=== PATIENT | male | born 1960 | race Caucasian/White ===

== ENCOUNTER 2017-06-26 05:18 | Emergency (ER) | payer SELFPAY ==
[2017-06-26] MEDS ORDERED: ASPIRIN 81 MG TABLET, CHEWABLE PO ONE (05:36)
[2017-06-26 06:16] LABS: ABSOLUTE BASOPHILS # (AUTO) 0.1 10^3/uL (0.0-0.2); ABSOLUTE LYMPHOCYTES (AUTO) 1.5 10^3/uL (0.5-4.7); ABSOLUTE MONOCYTES (AUTO) 0.3 10^3/uL (0.1-1.4); BASOPHILS % (AUTO) 1.7 % (0-2); EOSINOPHILS % (AUTO) 0.3 % (0-6); HEMATOCRIT 45.9 % (37.9-51.0); HEMOGLOBIN 15.9 g/dL (13.5-17.0); LYMPHOCYTES % (AUTO) 37.8 % (13-45); MEAN CORPUSCULAR HGB CONC 34.7 g/dL (32.0-36.0); MEAN CORPUSCULAR VOLUME 98 fl (80-97); MONOCYTES % (AUTO) 8.6 % (3-13); PLATELET COUNT 246 10^3/uL (150-450); RED BLOOD COUNT 4.68 10^6/uL (4.35-5.55); SEGMENTED NEUTROPHILS % (AUTO) 51.6 % (42-78); TOTAL CELLS COUNTED % (AUTO) 100 %; WHITE BLOOD COUNT 3.8 10^3/uL (4.0-10.5)
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
[2017-06-26 06:30] LABS: ALANINE AMINOTRANSFERASE 38 U/L (21-72); ALBUMIN 4.7 g/dL (3.5-5.0); ALKALINE PHOSPHATASE 66 U/L (38-126); ANION GAP 18 (5-19); ASPARTATE AMINO TRANSFERASE 49 U/L (17-59); BILIRUBIN,DIRECT 0.3 mg/dL (0.0-0.4); BILIRUBIN,TOTAL 0.7 mg/dL (0.2-1.3); BLOOD UREA NITROGEN 5 mg/dL (7-20); CALCIUM 9.8 mg/dL (8.4-10.2); CARBON DIOXIDE 22 mmol/L (22-30); CHLORIDE 103 mmol/L (98-107); CREATINE KINASE 47 U/L (55-170); GLUCOSE 90 mg/dL (75-110); POTASSIUM 4.5 mmol/L (3.6-5.0); SODIUM 142.8 mmol/L (137-145); TOTAL PROTEIN 7.1 g/dL (6.3-8.2)
[2017-06-26] MEDS ORDERED: METOCLOPRAMIDE HCL ORAL SOLN 10 MG/10 ML UDCUP PO ONE (06:34)
[2017-06-26] MEDS ORDERED: MAG HYDROX/AL HYDROX/SIMETH SUSP 30 ML UDCUP PO ONE (06:34)
[2017-06-26] MEDS ORDERED: LIDOCAINE 2% VISCOUS SOLN 20 ML UDCUP PO ONE (06:34)
[2017-06-26 06:42] LABS: CREATINE KINASE MB < 0.22 ng/mL (<4.55); TROPONIN I < 0.012 ng/mL
--- NOTE | 2017-06-26 06:59 | RADIOLOGY REPORT (SQ) ---
EXAM DESCRIPTION: CHEST SINGLE VIEW CLINICAL HISTORY: cp COMPARISON: None. FINDINGS: Single frontal view of the chest. The cardiomediastinal silhouette has normal size and contour. No consolidation, pneumothorax, or pleural effusion. No displaced rib fractures identified. Upper abdominal soft tissues are unremarkable. Leads overlie the chest. IMPRESSION: 1. No acute pulmonary process identified.
[2017-06-26 07:31] LABS: ALCOHOL 88 mg/dL (NONE DETECTED); LIPASE 44.8 U/L (23-300)
[2017-06-26 07:36] LABS: ACETAMINOPHEN < 10 ug/mL (10-30); SALICYLATE < 1.0 mg/dL (2.0-20.0)
--- NOTE | 2017-06-26 07:58 | EKG REPORT ---
SEVERITY:- BORDERLINE ECG - SINUS RHYTHM BORDERLINE INFERIOR Q WAVES : Confirmed by: Steve Najera MD 26-Jun-2017 07:56:56
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
[2017-06-26] MEDS ORDERED: MORPHINE SULFATE 10 MG/ML INJ IV ONE (10:44)
[2017-06-26 12:36] VITALS: BP 159/109
== END 2017-06-26 12:36 | disposition home or self-care (01) ==
LOC: ER 05:18
DX: K29.20 Alcoholic gastritis without bleeding (principal); R10.13 Epigastric pain; R11.2 Nausea with vomiting, unspecified; R07.9 Chest pain, unspecified; I10 Essential (primary) hypertension; R00.2 Palpitations; R42 Dizziness and giddiness; R51 Headache; F17.210 Nicotine dependence, cigarettes, uncomplicated
CPT/HCPCS: 93005; 99285; 36415; 82553; 80307 ×3; 82550; 83690; 85025; 80053; 84484; 71045; 93010; J3490; J2270

== ENCOUNTER 2017-07-26 10:54 | Emergency (ER) | payer SELFPAY ==
[2017-07-26] MEDS ORDERED: ASPIRIN 81 MG TABLET, CHEWABLE PO ONE (10:58)
[2017-07-26 11:35] LABS: ABSOLUTE LYMPHOCYTES (AUTO) 1.3 10^3/uL (0.5-4.7); ABSOLUTE MONOCYTES (AUTO) 0.6 10^3/uL (0.1-1.4); BASOPHILS % (AUTO) 0.4 % (0-2); EOSINOPHILS % (AUTO) 0.1 % (0-6); HEMATOCRIT 46.1 % (37.9-51.0); HEMOGLOBIN 15.9 g/dL (13.5-17.0); LYMPHOCYTES % (AUTO) 11.6 % (13-45); MEAN CORPUSCULAR HEMOGLOBIN 33.9 pg (27.0-33.4); MEAN CORPUSCULAR HGB CONC 34.5 g/dL (32.0-36.0); MEAN CORPUSCULAR VOLUME 98 fl (80-97); MONOCYTES % (AUTO) 5.1 % (3-13); PLATELET COUNT 229 10^3/uL (150-450); RED BLOOD COUNT 4.69 10^6/uL (4.35-5.55); RED CELL DISTRIBUTION WIDTH 12.9 % (11.5-14.0); SEGMENTED NEUTROPHILS % (AUTO) 82.8 % (42-78); TOTAL CELLS COUNTED % (AUTO) 100 %; WHITE BLOOD COUNT 10.8 10^3/uL (4.0-10.5)
[2017-07-26 11:56] LABS: ALANINE AMINOTRANSFERASE 48 U/L (21-72); ALBUMIN 5.1 g/dL (3.5-5.0); ALKALINE PHOSPHATASE 83 U/L (38-126); ANION GAP 17 (5-19); ASPARTATE AMINO TRANSFERASE 51 U/L (17-59); BILIRUBIN,DIRECT 0.3 mg/dL (0.0-0.4); BILIRUBIN,TOTAL 1.4 mg/dL (0.2-1.3); BLOOD UREA NITROGEN 8 mg/dL (7-20); CARBON DIOXIDE 23 mmol/L (22-30); CHLORIDE 102 mmol/L (98-107); CREATINE KINASE 73 U/L (55-170); GLUCOSE 98 mg/dL (75-110); POTASSIUM 4.4 mmol/L (3.6-5.0); SODIUM 141.6 mmol/L (137-145); TOTAL PROTEIN 7.6 g/dL (6.3-8.2)
[2017-07-26] MEDS ORDERED: LORAZEPAM 1 MG TABLET PO ONE (12:01)
[2017-07-26 12:17] LABS: CREATINE KINASE MB < 0.22 ng/mL (<4.55); TROPONIN I < 0.012 ng/mL
--- NOTE | 2017-07-26 12:31 | RADIOLOGY REPORT (SQ) ---
EXAM DESCRIPTION: CHEST SINGLE VIEW COMPLETED DATE/TIME: 07/26/2017 12:17 pm REASON FOR STUDY: bed 9 cp COMPARISON: 06/26/2017. EXAM PARAMETERS: NUMBER OF VIEWS: One view. TECHNIQUE: Single frontal radiographic view of the chest acquired. RADIATION DOSE: NA LIMITATIONS: None. FINDINGS: LUNGS AND PLEURA: No opacities, masses or pneumothorax. No pleural effusion. MEDIASTINUM AND HILAR STRUCTURES: No masses. Contour normal. HEART AND VASCULAR STRUCTURES: Heart normal in size. Normal vasculature. BONES: No acute findings. HARDWARE: None in the chest. OTHER: No other significant finding. IMPRESSION: NO ACUTE RADIOGRAPHIC FINDING IN THE CHEST. TECHNICAL DOCUMENTATION: JOB ID: [id number] [employer]- All Rights Reserved
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
--- NOTE | 2017-07-26 14:14 | ER Document Report ---
ED General <ROCKY LEAVITT - Last Filed: 07/26/17 14:17> - General Mode of Arrival: Ambulatory Information source: Patient TRAVEL OUTSIDE OF THE [place] IN LAST 30 DAYS: No - HPI Onset: Just prior to arrival Onset/Duration: Sudden Quality of pain: Achy, Sharp Severity: Mild Pain Level: 1 Associated symptoms: Body/muscle aches, Chest pain, Headache, Shortness of breath, Other Exacerbated by: Denies Relieved by: Denies Similar symptoms previously: Yes Recently seen / treated by doctor: Yes <PHOENIX DUFFY - Last Filed: 07/26/17 16:30> - General Chief Complaint: Anxiety Stated Complaint: CHEST PAIN Time Seen by Provider: 07/26/17 11:32 Notes: 56-year-old male presents with complaints of sharp chest pain headache abdominal pain tingling sensations in the hands and feet lips difficulty sleeping fast heart rate palpitations Patient had similar episode on previous visit that was attributed to anxiety patient admits that he is quite anxious (PHOENIX DUFFY) - Related Data Allergies/Adverse Reactions: No Known Allergies Allergy (Unverified 07/26/17 11:05) Past Medical History - Social History Smoking Status: Current Every Day Smoker Cigarette use (# per day): Yes Chew tobacco use (# tins/day): No Smoking Education Provided: No Frequency of alcohol use: Heavy Drug Abuse: None Family History: Reviewed & Not Pertinent Patient has suicidal ideation: No Patient has homicidal ideation: No - Past Medical History Cardiac Medical History: Reports: Hx Hypertension Denies: Hx Coronary Artery Disease Renal/ Medical History: Denies: Hx Peritoneal Dialysis GI Medical History: Reports: Hx Ulcer Psychiatric Medical History: Reports: Hx Depression Past Surgical History: Reports: Hx Cholecystectomy, Hx Orthopedic Surgery - L ankle <PHOENIX DUFFY - Last Filed: 07/26/17 16:30> Review of Systems <ROCKY LEAVITT - Last Filed: 07/26/17 14:17> <PHOENIX DUFFY - Last Filed: 07/26/17 16:30> - Review of Systems Notes: REVIEW OF SYSTEMS: CONSTITUTIONAL : Denies fever, chills, or sweats. Denies recent illness. EENT: Denies eye, ear, throat, or mouth pain or symptoms. Denies nasal or sinus congestion or discharge. Denies throat, tongue, or mouth swelling or difficulty swallowing. CARDIOVASCULAR: Admits to sharp chest pain RESPIRATORY: Admits to shortness of breath GASTROINTESTINAL: Admits to abdominal pain GENITOURINARY: Denies difficulty urinating, painful urination, burning, frequency, blood in urine, or discharge. MUSCULOSKELETAL: Admits to body aches SKIN: Denies rash, lesions or sores. HEMATOLOGIC : Denies easy bruising or bleeding. LYMPHATIC: Denies swollen, enlarged glands. NEUROLOGICAL: Admits to paresthesia PSYCHIATRIC: Admits to anxiety ALL OTHER SYSTEMS REVIEWED AND NEGATIVE. Dictation was performed using [employer] voice recognition software PHYSICAL EXAMINATION: GENERAL: Well-appearing, well-nourished and in no acute distress. HEAD: Atraumatic, normocephalic. EYES: Pupils equal round and reactive to light, extraocular movements intact, sclera anicteric, conjunctiva are normal. ENT: Nares patent, oropharynx clear without exudates. Moist mucous membranes. NECK: Normal range of motion, supple without lymphadenopathy LUNGS: Breath sounds clear to auscultation bilaterally and equal. No wheezes rales or rhonchi. HEART: Regular rate and rhythm without murmurs ABDOMEN: Soft, nontender, nondistended abdomen. No guarding, no rebound. No masses appreciated. Musculoskeletal: Normal range of motion, no pitting or edema. No cyanosis. NEUROLOGICAL: Cranial nerves grossly intact. Normal speech, normal gait. Normal sensory, motor exams PSYCH: Very anxious SKIN: Warm, Dry, normal turgor, no rashes or lesions noted. (PHOENIX DUFFY) - Vital signs Vitals: Pulse Ox 100 07/26/17 10:58 Course - Laboratory Result Diagrams: 07/26/17 11:25 07/26/17 11:25 <ROCKY LEAVITT - Last Filed: 07/26/17 14:17> - Laboratory Result Diagrams: 07/26/17 11:25 07/26/17 11:25 - Diagnostic Test Radiology reviewed: Image reviewed, Reports reviewed - EKG Interpretation by Hi EKG shows normal: Sinus rhythm, Morton, Intervals, QRS Complexes <PHOENIX DUFFY - Last Filed: 07/26/17 16:30> - Re-evaluation Re-evalutation: 07/26/17 16:29 Given the large number of complaints of this patient, anxiety appears to be the biggest contributor, he admits to insomnia and palpitations chest pain headache abdominal pain paresthesias. Patient overall looks well is in no distress was given benzo and notes significant improvement of symptoms. I have mental health evaluate the patient as well they agree with assessment and have given resources to the patient. 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 Patient states he understands and will do so After performing a Medical Screening Examination, I estimate there is LOW risk for RUPTURED ESOPHAGUS, PNEUMOTHORAX, PULMONARY EMBOLISM, ACUTE CORONARY SYNDROME, OR THORACIC AORTIC DISSECTION, thus I consider the discharge disposition reasonable. I have reevaluated this patient multiple times and no significant life threatening changes are noted. The patient and I have discussed the diagnosis and risks, and we agree with discharging home with close follow-up. We also discussed returning to the Emergency Department immediately if new or worsening symptoms occur. We have discussed the symptoms which are most concerning (e.g., bloody sputum, worsening pain or shortness of breath) that necessitate immediate return. (PHOENIX DUFFY) - Vital Signs Vital signs: Temp Pulse Resp BP Pulse Ox 98.7 F 22 H 151/101 H 93 07/26/17 11:02 07/26/17 14:35 07/26/17 14:35 07/26/17 14:35 - Laboratory Laboratory results interpreted by me: 07/26/17 07/26/17 11:25 11:25 WBC 10.8 H MCV 98 H MCH 33.9 H Seg Neutrophils % 82.8 H Lymphocytes % 11.6 L Absolute Neutrophils 9.0 H Total Bilirubin 1.4 H Albumin 5.1 H Discharge <ROCKY LEAVITT - Last Filed: 07/26/17 14:17> <PHOENIX DUFFY - Last Filed: 07/26/17 16:30> - Discharge Clinical Impression: Anxiety Chest pain Qualifiers: Chest pain type: unspecified Qualified Code(s): R07.9 - Chest pain, unspecified Condition: Stable Disposition: HOME, SELF-CARE Instructions: Anxiety ([facility]) Additional Instructions: Anxiety The physician feels that some of your health problems are being caused by anxiety. Anxiety affects your health in many ways. Anxiety alone can cause palpitations, sweats, chest pains, abdominal pains, shortness of breath, and headaches. It contributes to ulcer disease, high blood pressure, irritable bowel syndrome, and has been shown to cause flare-ups of many other diseases. Anxiety is not a simple disorder to treat. If the anxiety is due to recent life stresses, you may simply need time to "work through" the changes. If the anxiety is due to an underlying unhappiness with yourself or due to psychiatric disturbance, professional help will be needed. Your physician can refer you for further help if needed. Anti-anxiety medication is occasionally given if the stress is acute or if you are having trouble sleeping. Chronic or frequent use of these medications is not a good idea because the body becomes reliant on it, preventing you from dealing with life's normal stresses. ALCOHOLISM and ALCOHOL ABUSE: Your evaluation reveals evidence of possible alcoholism, an addiction to alcohol. The tendency to alcoholism may be inherited. Chronic use of alcohol weakens muscles, causes fatty deposits in the liver , damages the stomach, makes you more prone to infections, and can cause defects in unborn children. In the long run, brain atrophy and cirrhosis of the liver result. You are also at greater risk for certain types of cancer, such as cancer of the mouth, throat, stomach, and liver. Counselling services are available to help you. In-hospital treatment programs often help. Support groups such as Alcoholics Anonymous can be very useful in beating this addiction. As alcoholics often are prone to other addictions, you should discuss your use of any other medications with the doctor. Follow Up Care: You have been given resources for outpatient mental health, medication management, substance abuse services and primary care services in the area. It is recommended you establish care with the provider of your choice. We have recommended [facility] and [facility] as providers to establish your care. You are encouraged to follow up with those providers. If you experience worsening or a significant change in your symptoms, notify the physician immediately or return to the Emergency Department at any time for re- evaluation. Referrals: [facility] [Outside] - Follow up as needed [facility] [Provider Group] - Follow up as needed
[2017-07-26 14:53] VITALS: BP 151/101
--- NOTE | 2017-07-26 20:50 | EKG REPORT ---
SEVERITY:- OTHERWISE NORMAL ECG - SINUS ARRHYTHMIA, RATE 69-97 : Confirmed by: Natalie Geronimo 26-Jul-2017 20:49:26
== END 2017-07-26 14:53 | disposition home or self-care (01) ==
LOC: ER 10:54
DX: F41.9 Anxiety disorder, unspecified (principal); R07.9 Chest pain, unspecified; R51 Headache; R06.02 Shortness of breath; R10.9 Unspecified abdominal pain; R20.2 Paresthesia of skin; I10 Essential (primary) hypertension; G47.00 Insomnia, unspecified; R00.2 Palpitations; F17.210 Nicotine dependence, cigarettes, uncomplicated; Z90.49 Acquired absence of other specified parts of digestive tract
CPT/HCPCS: 36415; 71045; 80053; 82550; 82553; 84484; 85025; 93005; 93010; 99285

== ENCOUNTER 2017-08-24 10:02 | Emergency (ER) | payer SELFPAY ==
[2017-08-24] MEDS ORDERED: ONDANSETRON HCL INJ/PF 4 MG/2 ML SDV IV ONE (10:31)
[2017-08-24] MEDS ORDERED: NORMAL SALINE 1000 ML 1,000 ML IV ONE (10:31)
[2017-08-24] MEDS ORDERED: LORAZEPAM INJ 2 MG/1 ML VIAL IV ONE (10:32)
--- NOTE | 2017-08-24 10:32 | ER Document Report ---
ED Medical Screen (RME) - General Chief Complaint: Abdominal Pain Stated Complaint: VOMITING,DIARRHEA Time Seen by Provider: 08/24/17 10:31 Notes: Patient states he has had severe vomiting for several days. He states is been able to sleep. He states is also been having visual hallucinations. He states he does drink alcohol daily but has not had any alcohol in the last 24 hours. He denies any auditory hallucinations. No suicidal or homicidal ideation. He states he is currently very stressed as he just lost his job. TRAVEL OUTSIDE OF THE [place] IN LAST 30 DAYS: No - Related Data Allergies/Adverse Reactions: oxycodone Adverse Reaction (Verified 08/24/17 10:19) Past Medical History - Social History Chew tobacco use (# tins/day): No Frequency of alcohol use: Heavy Drug Abuse: None - Past Medical History Cardiac Medical History: Reports: Hx Hypertension Denies: Hx Coronary Artery Disease Renal/ Medical History: Denies: Hx Peritoneal Dialysis GI Medical History: Reports: Hx Ulcer Psychiatric Medical History: Reports: Hx Depression Past Surgical History: Reports: Hx Cholecystectomy, Hx Orthopedic Surgery - L ankle Physical Exam - Vital signs Vitals: Temp Pulse BP Pulse Ox 99.3 F 116 H 159/98 H 98 08/24/17 10:12 08/24/17 10:12 08/24/17 10:12 08/24/17 10:12 Course - Vital Signs Vital signs: Temp Pulse Resp BP Pulse Ox 99.3 F 116 H 159/98 H 98 08/24/17 10:12 08/24/17 10:12 08/24/17 10:12 08/24/17 10:12
[2017-08-24 11:15] LABS: ALANINE AMINOTRANSFERASE 157 U/L (21-72); ALBUMIN 4.8 g/dL (3.5-5.0); ALCOHOL 17 mg/dL (NONE DETECTED); ALKALINE PHOSPHATASE 92 U/L (38-126); ANION GAP 18 (5-19); ASPARTATE AMINO TRANSFERASE 195 U/L (17-59); BILIRUBIN,DIRECT 0.5 mg/dL (0.0-0.4); BILIRUBIN,TOTAL 1.5 mg/dL (0.2-1.3); BLOOD UREA NITROGEN 9 mg/dL (7-20); CALCIUM 9.7 mg/dL (8.4-10.2); CARBON DIOXIDE 22 mmol/L (22-30); CHLORIDE 99 mmol/L (98-107); GLUCOSE 101 mg/dL (75-110); LIPASE 72.6 U/L (23-300); POTASSIUM 3.6 mmol/L (3.6-5.0); SODIUM 138.7 mmol/L (137-145); TOTAL PROTEIN 7.7 g/dL (6.3-8.2)
--- NOTE | 2017-08-24 11:24 | ER Document Report ---
ED GI/ - General Chief Complaint: Abdominal Pain Stated Complaint: VOMITING,DIARRHEA Time Seen by Provider: 08/24/17 10:31 Notes: The patient is a 56-year-old male, daily drinker (2-3 glasses of wine a day), history of cholecystectomy, presents with 3 days of nausea, vomiting and RUQ tenderness. Patient says last drink was yesterday and he has never gone through withdrawal had any seizures. He denies diarrhea, constipation, rash, urinary symptoms, hallucinations, tremulousness, back pain, chest pain or shortness of breath. TRAVEL OUTSIDE OF THE [place] IN LAST 30 DAYS: No - Related Data Allergies/Adverse Reactions: oxycodone Adverse Reaction (Verified 08/24/17 10:19) Past Medical History - General Information source: Patient - Social History Smoking Status: Current Every Day Smoker Chew tobacco use (# tins/day): No Frequency of alcohol use: Heavy Drug Abuse: None Family History: Reviewed & Not Pertinent Patient has suicidal ideation: No Patient has homicidal ideation: No - Past Medical History Cardiac Medical History: Reports: Hx Hypertension Denies: Hx Coronary Artery Disease Renal/ Medical History: Denies: Hx Peritoneal Dialysis GI Medical History: Reports: Hx Ulcer Psychiatric Medical History: Reports: Hx Depression Past Surgical History: Reports: Hx Cholecystectomy, Hx Orthopedic Surgery - L ankle Review of Systems - Review of Systems Notes: REVIEW OF SYSTEMS: CONSTITUTIONAL: -fevers, -chills EENT: -eye pain, -difficulty swallowing, -nasal congestion CARDIOVASCULAR: -chest pain, -syncope. RESPIRATORY: -cough, -SOB GASTROINTESTINAL: +abdominal pain, +nausea, +vomiting, -diarrhea GENITOURINARY: -dysuria, -hematuria MUSCULOSKELETAL: -back pain, -neck pain SKIN: -rash or skin lesions. HEMATOLOGIC: -easy bruising or bleeding. LYMPHATIC: -swollen, enlarged glands. NEUROLOGICAL: -altered mental status or loss of consciousness, -headache, - neurologic symptoms PSYCHIATRIC: -anxiety, -depression. ALL OTHER SYSTEMS REVIEWED AND NEGATIVE. Physical Exam - Vital signs Vitals: Temp Pulse BP Pulse Ox 99.3 F 116 H 159/98 H 98 08/24/17 10:12 08/24/17 10:12 08/24/17 10:12 08/24/17 10:12 - Notes Notes: PHYSICAL EXAMINATION: GENERAL: Well-appearing, well-nourished and in no acute distress. HEAD: Atraumatic, normocephalic. EYES: Pupils equal round and reactive to light, extraocular movements intact, sclera anicteric, conjunctiva are normal. ENT: nares patent, oropharynx clear without exudates. Moist mucous membranes. NECK: Normal range of motion, supple without lymphadenopathy LUNGS: Breath sounds clear to auscultation bilaterally and equal. No wheezes rales or rhonchi. HEART: Tachycardia, regular rhythm. ABDOMEN: Soft, mild RUQ tenderness, normoactive bowel sounds. No guarding, no rebound. No masses appreciated. EXTREMITIES: Normal range of motion, no pitting or edema. No cyanosis. NEUROLOGICAL: Cranial nerves grossly intact. Normal speech, normal gait. Normal sensory and motor exams. PSYCH: Normal mood, normal affect. SKIN: Warm, Dry, normal turgor, no rashes or lesions noted. Course - Re-evaluation Re-evalutation: Patient initially tachycardic, which resolved after Ativan. His CIWA score is 6 and he has never gone through florid DT or alcohol withdrawal. Patient's LFTs are elevated, but he has already had a cholecystectomy. Ultrasound did not show any acute on urinalysis, but it was limited. CT abdomen pelvis ordered and it shows fatty liver disease and a adrenal mass, which may be primary adrenal mass or metastatic disease. Patient provided with a copy of the CAT scan report instructions to follow-up with his primary care physician for further evaluation and treatment. He is also given oncology follow-up. He is aware that this may be cancer. Patient feels much better after fluids and Zofran and will discharge home with strict return precautions. - Vital Signs Vital signs: Temp Pulse Resp BP Pulse Ox 99.3 F 116 H 21 H 146/90 H 92 08/24/17 10:12 08/24/17 10:12 08/24/17 15:00 08/24/17 14:01 08/24/17 15:00 - Laboratory Result Diagrams: 08/24/17 11:41 08/24/17 10:46 Laboratory results interpreted by me: 08/24/17 08/24/17 08/24/17 10:46 11:30 11:41 MCV 99 H RDW 14.4 H Plt Count 79 L Seg Neuts % (Manual) 95 H Lymphocytes % (Manual) 3 L Monocytes % (Manual) 2 L Abs Lymphs (Manual) 0.3 L Total Bilirubin 1.5 H Direct Bilirubin 0.5 H AST 195 H ALT 157 H Urine Protein 100 H Urine Ketones 20 H Urine Urobilinogen 4.0 H - Diagnostic Test Radiology reviewed: Image reviewed, Reports reviewed Radiology results interpreted by me: CT A/P: Diffuse fatty infiltration of the liver without focal hepatic abnormalities being identified. Right adrenal mass measuring 2.5 x 2.4 cm in diameters which could represent a primary adrenal neoplasm or possible metastatic disease. Other findings as noted above. RUQ US: Limited study as noted above. No significant intra-abdominal abnormalities were identified. Findings as noted above. Discharge - Discharge Clinical Impression: Adrenal mass, Fatty liver disease, nonalcoholic Abdominal pain Qualifiers: Abdominal location: unspecified location Qualified Code(s): R10.9 - Unspecified abdominal pain Nausea and vomiting Qualifiers: Vomiting type: unspecified Vomiting Intractability: non-intractable Qualified Code(s): R11.2 - Nausea with vomiting, unspecified Condition: Stable Disposition: HOME, SELF-CARE Additional Instructions: Use the Zofran to help with any nausea and stay hydrated. Try to cut down on your drinking and go to [facility] if you need rehab. You have a mass on 1 of your adrenal glands and this may be cancer. He must follow-up with your primary care physician for further evaluation. Bring the CAT scan report with you. You are also provided with follow-up at oncology. ABDOMINAL PAIN: There are many causes of abdominal pain. Pain can mean a serious problem requiring surgery (such as appendicitis). It can also be an innocent problem that goes away on its own (such as a viral infection). Often, time must pass to determine the cause of pain. The physician does not feel that hospitalization is necessary, at present. Things may change within the next 24 hours. Call the doctor or come back for re- examination if any problems occur, such as: (1) Pain that becomes more severe, steady, or becomes concentrated in one specific area. Also, pain that is more severe with movement or coughing. (2) Vomiting that persists or becomes more frequent. (3) Blood in the vomitus, urine, or bowel movements. Blood in the stool may have a tarry or black appearance. (4) Shaking chills or fever greater than 100 degrees F. (5) The abdomen becomes more distended or swollen. (6) Bowel movements cease. (7) Failure to improve as expected. NORMAL EXAM AND WORKUP: At this time, your examination and workup show no significant abnormality. No significant abnormal physical findings are noted. All laboratory, EKG, and imaging (x-ray, CT scans, ultrasound) studies that were ordered show no significant abnormality. Although your examination and all studies that were ordered showed no significant abnormal finding, there are no examinations and no studies that are 100% accurate. There is always the possibility that some abnormality could exist and not be detected with physical examination or within the limits and capabilities of laboratory and other studies. You should return or follow up as you were instructed on your visit today for further evaluation if your symptoms do not resolve. ANTINAUSEA MEDICATION: You have been given a medication to suppress nausea and vomiting. This type of medication can be given as a shot, pill, or suppository. It will usually last for many hours. Pills and shots usually last six to eight hours, suppositories last about 12 hours. For the typical illness, only one or two doses of the medication may be necessary. Mild lightheadedness may occur. This type of medicine can cause drowsiness. Do not drive or operate dangerous machinery while under its influence. Do not mix with alcohol. See your doctor at once if you have muscle spasms or tightness, or uncontrollable motions (particularly of the neck, mouth, or jaw). Persistent vomiting or severe lightheadedness should also be evaluated by the physician. FOLLOW-UP CARE: If you have been referred to a physician for follow-up care, call the physician s office for an appointment as you were instructed or within the next two days. If you experience worsening or a significant change in your symptoms, notify the physician immediately or return to the Emergency Department at any time for re-evaluation. VOMITING: Vomiting (or nausea without vomiting) can be caused by many other different problems. It can mean that something's wrong with the stomach, such as ulcers or inflammation or the intestinal tract, such as appendicitis. But it can also be a symptom of a problem that has nothing to do with the stomach or intestines. Vomiting is common with severe headaches, earaches, tonsillitis, and kidney infections, etc. We see it with pneumonia or heart attacks. Drugs can cause nausea and vomiting. Many abdominal problems cause vomiting; for example, gallstones, kidney stones, pancreatitis, and intestinal obstruction ( blocked bowels). In most cases, curing the vomiting depends on fixing the problem that caused it. For temporary relief, we may use an anti-nausea medicine. For home use, we can prescribe suppositories, chewable pills, pills that dissolve in the mouth, or liquid anti-nausea drugs. If the vomiting seems to be caused by a problem in the stomach, acid-suppressing drugs may be prescribed as well. It's important to avoid dehydration. Sip small amounts of clear liquids ( soft drinks, tea, broth, etc) . Try to take fluids frequently even if you are vomiting to prevent dehydration. Take increasing amounts of fluid and when liquids are being consumed successfully, advance to small amounts of bland food (toast, soups, mashed potatoes, etc.) until you are able to resume a regular diet. Avoid aspirin, tobacco, and alcohol. If the vomiting worsens, if the problem that's making you vomit worsens, or if there's evidence of bleeding in the stomach (such as black, tarry stool, or bloody or black vomit), you should return immediately. Also, return if abdominal pain worsens or becomes localized to one area or you develop high fever. Call your doctor if you aren't improved in 24 hours. INTRAVENOUS (I V) FLUIDS: As part of your care today, you received intravenous (IV) fluids. IV fluids are administered to patients who are dehydrated or to those who have certain chemical (electrolyte) abnormalities that need correcting. ANTINAUSEA MEDICATION: You have been given a medication to suppress nausea and vomiting. This type of medication can be given as a shot, pill, or suppository. It will usually last for many hours. Pills and shots usually last six to eight hours. For the typical illness, only one or two doses of the medication may be necessary. Mild lightheadedness may occur. This type of medicine can cause drowsiness. Do not drive or operate dangerous machinery while under its influence. Do not mix with alcohol. See your doctor at once if you have muscle spasms or tightness, or uncontrollable motions (particularly of the neck, mouth, or jaw). Persistent vomiting or severe lightheadedness should also be evaluated by the physician. FOLLOW-UP CARE: If you have been referred to a physician for follow-up care, call the physician s office for an appointment as you were instructed or within the next two days. If you experience worsening or a significant change in your symptoms, notify the physician immediately or return to the Emergency Department at any time for re-evaluation. Prescriptions: Ondansetron [Zofran Odt 4 mg Tablet] 1 - 2 tab PO Q4H PRN #15 tab.rapdis PRN Reason: For Nausea/Vomiting Forms: Elevated Blood Pressure Referrals: [facility] [Outside] - Follow up as needed DANIEL STEVENS MD [ACTIVE STAFF] - Follow up as needed WILL FERRARI MD [COMMUNITY BASED STAFF] - Follow up as needed
[2017-08-24 11:59] LABS: APPEARANCE,URINE SLIGHTLY-CLOUDY; BILIRUBIN,URINE NEGATIVE (NEGATIVE); COLOR,URINE AMBER; GLUCOSE, URINE NEGATIVE (NEGATIVE); KETONES,URINE 20 mg/dL (NEGATIVE); LEUKOCYTE ESTERASE,URINE NEGATIVE (NEGATIVE); NITRITE,URINE NEGATIVE (NEGATIVE); PROTEIN,URINE 100 mg/dL (NEGATIVE); URINE SPECIFIC GRAVITY 1.026
[2017-08-24 11:59] LABS: HEMATOCRIT 43.5 % (37.9-51.0); HEMOGLOBIN 14.7 g/dL (13.5-17.0); MEAN CORPUSCULAR HEMOGLOBIN 33.4 pg (27.0-33.4); MEAN CORPUSCULAR HGB CONC 33.8 g/dL (32.0-36.0); MEAN CORPUSCULAR VOLUME 99 fl (80-97); RED CELL DISTRIBUTION WIDTH 14.4 % (11.5-14.0); WHITE BLOOD COUNT 8.6 10^3/uL (4.0-10.5)
[2017-08-24] MEDS ORDERED: DIAZEPAM INJ 10 MG/2 ML DISP.SYRIN IV ONE (12:01)
[2017-08-24 12:12] LABS: URINE AMPHETAMINES SCREEN NEGATIVE; URINE BARBITURATES SCREEN NEGATIVE; URINE BENZODIAZEPINES SCREEN NEGATIVE; URINE COCAINE SCREEN NEGATIVE; URINE MARIJUANA (THC) SCREEN NEGATIVE; URINE METHADONE SCREEN NEGATIVE; URINE PHENCYCLIDINE SCREEN NEGATIVE
[2017-08-24 12:15] LABS: PLATELET COUNT 79 10^3/uL (150-450)
[2017-08-24 12:28] LABS: ABSOLUTE LYMPHOCYTES# (MANUAL) 0.3 10^3/uL (0.5-4.7); ABSOLUTE MONOCYTES # (MANUAL) 0.2 10^3/uL (0.1-1.4); ABSOLUTE NEUTROPHILS# (MANUAL) 8.2 10^3/uL (1.7-8.2); BASOPHILS % (MANUAL) 0 % (0-2); EOSINOPHILS % (MANUAL) 0 % (0-6); LYMPHOCYTES % (MANUAL) 3 % (13-45); MONOCYTES % (MANUAL) 2 % (3-13); SEGMENTED NEUTROPHILS % (MAN) 95 % (42-78); TOTAL CELLS COUNTED 100
[2017-08-24 12:30] LABS: ANISOCYTOSIS SLIGHT; PLATELET COMMENT DECREASED
--- NOTE | 2017-08-24 13:12 | RADIOLOGY REPORT (SQ) ---
EXAM DESCRIPTION: U/S ABDOMEN LIMITED W/O DOP COMPLETED DATE/TIME: 08/24/2017 12:49 pm REASON FOR STUDY: N/V, RUQ tenderness, elevated LFTs COMPARISON: None. TECHNIQUE: Dynamic and static grayscale images acquired of the abdomen and recorded on PACS. Additio nal selected color Doppler and spectral images recorded. LIMITATIONS: Study is limited due to overlying bowel gas and the patient's condition. FINDINGS: PANCREAS: Pancreas is not well visualized overlying bowel gas P LIVER: No masses. Echotexture normal. LIVER VASCULATURE: Portal vein was not visualized. GALLBLADDER: Status post cholecystectomy ULTRASOUND-DETECTED POLLOCK'S SIGN: Negative. INTRAHEPATIC DUCTS AND COMMON DUCT: The common bile duct was not visualize. No dilated intrahepatic bile ducts are identified. INFERIOR VENA CAVA: Not visualize AORTA: Incompletely visualize RIGHT KIDNEY: Normal size. Normal echogenicity. No solid or suspicious masses. No hydronephrosis. No calcifications. PERITONEAL AND RIGHT PLEURAL SPACE: No ascites or effusions. OTHER: No other significant findings. IMPRESSION: Limited study as noted above. No significant intra-abdominal abnormalities were identif ied. Findings as noted above. TECHNICAL DOCUMENTATION: JOB ID: [id number] [employer]- All Rights Reserved Reading location - IP/workstation name: [email or web address]
--- NOTE | 2017-08-24 15:07 | RADIOLOGY REPORT (SQ) ---
EXAM DESCRIPTION: CT ABD/PELVIS WITH IV ONLY COMPLETED DATE/TIME: 08/24/2017 2:42 pm REASON FOR STUDY: diffuse abdominal pain, N/V, tender RLQ COMPARISON: None. TECHNIQUE: CT scan of the abdomen and pelvis performed using helical scanning technique with dynamic intravenous contrast injection. No oral contrast. Images reviewed with lung, soft tissue, and bone windows. Reconstructed coronal and sagittal MPR images reviewed. Delayed images for evaluation of the urinary system also acquired. All images stored on PACS. All CT scanners at this facility use dose modulation, iterative reconstruction, and/or weight based d osing when appropriate to reduce radiation dose to as low as reasonably achievable (ALARA). [facility]: Dose Right [facility]: CareDose [facility]: Dose Right [facility]: Teradose 4D [facility]: [place] CONTRAST TYPE AND DOSE: contrast/concentration: Isovue 370.00 mg/ml; Total Contrast Delivered: 82.0 ml; Total Saline Delivered: 65.0 ml RENAL FUNCTION: Creatinine 0.64 RADIATION DOSE: CT Rad equipment meets quality standard of care and radiation dose reduction techniq ues were employed. CTDIvol: 6.5 - 9.0 mGy. DLP: 836 mGy-cm.. LIMITATIONS: None. FINDINGS: LOWER CHEST: No significant findings. No nodules or infiltrates. LIVER: Normal size. No masses. No dilated ducts. There is diffuse fatty infiltration of the liver. SPLEEN: Normal size. No focal lesions. PANCREAS: No masses. No significant calcifications. No adjacent inflammation or peripancreatic fluid collections. Pancreatic duct not dilated. GALLBLADDER: Status post cholecystectomy ADRENAL GLANDS: A right adrenal mass is identified measuring 2.5 x 2.4 cm in diameters which could re present a primary adrenal neoplasm or possible metastatic disease. RIGHT KIDNEY AND URETER: No solid masses. No significant calcifications. No hydronephrosis or hyd roureter. LEFT KIDNEY AND URETER: No solid masses. No significant calcifications. No hydronephrosis or hydr oureter. AORTA AND VESSELS: No aneurysm. No dissection. Renal arteries, SMA, celiac without stenosis. RETROPERITONEUM: No retroperitoneal adenopathy, hemorrhage or masses. BOWEL AND PERITONEAL CAVITY: No masses or inflammatory changes. No free fluid or peritoneal masses. APPENDIX: Normal. PELVIS: No mass. No free fluid. Normal bladder. ABDOMINAL WALL: No masses. No hernias. BONES: No significant or acute findings. OTHER: No other significant finding. IMPRESSION: Diffuse fatty infiltration of the liver without focal hepatic abnormalities being identi fied. Right adrenal mass measuring 2.5 x 2.4 cm in diameters which could represent a primary adrenal neoplasm or possible metastatic disease. Other findings as noted above TECHNICAL DOCUMENTATION: JOB ID: [id number] Quality ID # [id number]: Final reports with documentation of one or more dose reduction techniques (e.g., Au tomated exposure control, adjustment of the mA and/or kV according to patient size, use of iterative reconstruction technique) 2010 [employer]- All Rights Reserved Reading location - IP/workstation name: [email or web address]
[2017-08-24] MEDS ORDERED: DIAZEPAM 5 MG TABLET PO ONE (16:04)
[2017-08-24 16:57] VITALS: BP 145/91
== END 2017-08-24 17:20 | disposition home or self-care (01) ==
LOC: ER 10:02
DX: R11.2 Nausea with vomiting, unspecified (principal); E27.8 Other specified disorders of adrenal gland; K76.0 Fatty (change of) liver, not elsewhere classified; R10.811 Right upper quadrant abdominal tenderness; I10 Essential (primary) hypertension; F17.200 Nicotine dependence, unspecified, uncomplicated; Z90.49 Acquired absence of other specified parts of digestive tract; R00.0 Tachycardia, unspecified
CPT/HCPCS: 99285; 96361; 96374; 96375; 36415; 80307 ×2; 83690; 85025; 80053; 81001; 76705; 74177; J3360; J2060; J2405; J7030

== ENCOUNTER 2017-10-08 19:04 | Emergency (ER) | payer SELFPAY ==
[2017-10-08] MEDS ORDERED: NORMAL SALINE 1000 ML 1,000 ML IV ONE (19:11)
--- NOTE | 2017-10-08 19:31 | ER Document Report ---
ED Psych Disorder / Suicide - General Mode of Arrival: Medic Information source: Patient TRAVEL OUTSIDE OF THE [place] IN LAST 30 DAYS: No <ALEXA AZUL - Last Filed: 10/08/17 19:53> <HEMALATHA HODGES - Last Filed: 10/09/17 02:54> - General Chief Complaint: Suicidal Ideation Stated Complaint: PSYCH EVAL Time Seen by Provider: 10/08/17 19:09 Notes: Patient is a 57-year-old male who presents to the emergency department today with complaints of suicidal ideation. Patient states that he "is giving up, and tired of life". Patient mentions he has fractured ribs and has been unable to eat or sleep for the last week but does not elaborate on why other than he has "stomach issues". Patient states he has been "homeless several times in the past and laid off several times". Patient states he has an apartment now but he states he is going to "lose it by the end of the month". Patient has been here in the past for suicidal ideation. Patient states he does smoke and drink with his last alcohol consumption being this morning at 0300. (ALEXA AZUL) - Related Data Allergies/Adverse Reactions: oxycodone Adverse Reaction (Verified 08/24/17 10:19) Past Medical History - General Information source: Patient - Social History Smoking Status: Current Every Day Smoker Cigarette use (# per day): Yes Frequency of alcohol use: Heavy Drug Abuse: None Lives with: Alone Family History: Reviewed & Not Pertinent - Past Medical History Cardiac Medical History: Reports: Hx Hypertension GI Medical History: Reports: Hx Ulcer Psychiatric Medical History: Reports: Hx Depression Past Surgical History: Reports: Hx Cholecystectomy, Hx Orthopedic Surgery - L ankle <ALEXA AZUL - Last Filed: 10/08/17 19:53> Review of Systems - Review of Systems Constitutional: No symptoms reported EENT: No symptoms reported Cardiovascular: No symptoms reported Respiratory: No symptoms reported Gastrointestinal: See HPI, Abdominal pain Genitourinary: No symptoms reported Male Genitourinary: No symptoms reported Musculoskeletal: No symptoms reported Skin: No symptoms reported Hematologic/Lymphatic: No symptoms reported Neurological/Psychological: See HPI, Suicidal ideation -: Yes All other systems reviewed and negative <ALEXA AZUL - Last Filed: 10/08/17 19:53> Physical Exam - Vital signs Interpretation: Normal - General General appearance: Appears well, Alert, Anxious - HEENT Head: Normocephalic, Atraumatic Eyes: Normal Pupils: PERRL - Respiratory Respiratory status: No respiratory distress Chest status: Nontender Breath sounds: Normal Chest palpation: Normal - Cardiovascular Rhythm: Regular Heart sounds: Normal auscultation Murmur: No - Abdominal Inspection: Normal Distension: No distension Bowel sounds: Normal Tenderness: Nontender Organomegaly: No organomegaly - Back Back: Normal, Nontender - Extremities General upper extremity: Normal inspection, Nontender, Normal color, Normal ROM , Normal temperature General lower extremity: Normal inspection, Nontender, Normal color, Normal ROM , Normal temperature, Normal weight bearing. No: Elana's sign - Neurological Neuro grossly intact: Yes Cognition: Normal Orientation: AAOx4 [place] Coma Scale Eye Opening: Spontaneous Jay Coma Scale Verbal: Oriented Jay Coma Scale Motor: Obeys Commands [place] Coma Scale Total: 15 Speech: Normal Motor strength normal: LUE, RUE, LLE, RLE Sensory: Normal - Psychological Associated symptoms: Flat affect - Skin Skin Temperature: Warm Skin Moisture: Dry Skin Color: Normal <HEMALATHA HODGES - Last Filed: 10/09/17 02:54> - Vital signs Vitals: Temp Pulse Resp BP Pulse Ox 98.5 F 93 24 H 138/82 H 95 10/08/17 19:26 10/08/17 19:26 10/08/17 19:26 10/08/17 19:26 10/08/17 19:26 Course - Laboratory Result Diagrams: 10/08/17 19:45 10/08/17 19:45 <ALEXA AZUL - Last Filed: 10/08/17 19:53> - Laboratory Result Diagrams: 10/08/17 19:45 10/08/17 19:45 <HEMALATHA HODGES - Last Filed: 10/09/17 02:54> - Re-evaluation Re-evalutation: 10/09/17 02:52 Patient is a 57-year-old male with a history of alcohol abuse who comes in stating that he is suicidal and he wants to end things. Patient does not have an exact plan. States that he cannot afford his medications and that he is going to lose his housing soon. Patient drinks and smokes daily. Patient was given medication for anxiety and to sleep as he states he has not slept in weeks. I have put in a psychiatric consult and also social work consult for this patient. He is otherwise medically stable. Of note, his blood work is showing that he is intoxicated. (HEMALATHA HODGES) - Vital Signs Vital signs: Temp Pulse Resp BP Pulse Ox 98.5 F 93 24 H 138/82 H 95 10/08/17 19:26 10/08/17 19:26 10/08/17 19:26 10/08/17 19:26 10/08/17 19:26 - Laboratory Laboratory results interpreted by me: 10/08/17 10/08/17 10/08/17 19:45 19:45 21:00 WBC 2.5 L MCV 101 H MCH 34.1 H RDW 14.8 H Seg Neuts % (Manual) 37 L Basophils % (Manual) 6 H Abs Neuts (Manual) 0.9 L Sodium 146.7 H AST 139 H ALT 113 H Urine Ketones 20 H Urine Urobilinogen 2.0 H Salicylates < 1.0 L Acetaminophen < 10 L Discharge <ALEXA AZUL - Last Filed: 10/08/17 19:53> <HEMALATHA HODGES - Last Filed: 10/09/17 02:54> - Discharge Clinical Impression: Suicidal ideation Alcohol intoxication Qualifiers: Complication of substance-induced condition: uncomplicated Qualified Code(s): F10.920 - Alcohol use, unspecified with intoxication, uncomplicated Condition: Stable Disposition: OTHER Scribe Attestation: 10/09/17 02:54 I personally performed the services described in the documentation, reviewed and edited the documentation which was dictated to the scribe in my presence, and it accurately records my words and actions. (HEMALATHA HODGES) Scribe Documentation - Scribe Written by Ming:: Ming Rubio, 10/08/20171999 acting as scribe for :: Nandini <ALEXA AZUL - Last Filed: 10/08/17 19:53>
[2017-10-08 20:01] LABS: HEMATOCRIT 45.4 % (37.9-51.0); HEMOGLOBIN 15.3 g/dL (13.5-17.0); MEAN CORPUSCULAR HEMOGLOBIN 34.1 pg (27.0-33.4); MEAN CORPUSCULAR HGB CONC 33.6 g/dL (32.0-36.0); MEAN CORPUSCULAR VOLUME 101 fl (80-97); RED BLOOD COUNT 4.48 10^6/uL (4.35-5.55); RED CELL DISTRIBUTION WIDTH 14.8 % (11.5-14.0); WHITE BLOOD COUNT 2.5 10^3/uL (4.0-10.5)
[2017-10-08] MEDS ORDERED: LANSOPRAZOLE 15 MG TAB.RAP.DR PO ONE (20:04)
[2017-10-08] MEDS ORDERED: SUCRALFATE 1 GM TABLET PO ONE (20:04)
[2017-10-08] MEDS ORDERED: OLANZAPINE 5 MG TABLET PO ONE (20:05)
[2017-10-08 20:22] LABS: ALANINE AMINOTRANSFERASE 113 U/L (21-72); ALBUMIN 4.5 g/dL (3.5-5.0); ALCOHOL 258 mg/dL (NONE DETECTED); ALKALINE PHOSPHATASE 70 U/L (38-126); ANION GAP 18 (5-19); ASPARTATE AMINO TRANSFERASE 139 U/L (17-59); BILIRUBIN,DIRECT 0.3 mg/dL (0.0-0.4); BILIRUBIN,TOTAL 0.5 mg/dL (0.2-1.3); BLOOD UREA NITROGEN 7 mg/dL (7-20); CALCIUM 9.3 mg/dL (8.4-10.2); CARBON DIOXIDE 26 mmol/L (22-30); CHLORIDE 103 mmol/L (98-107); GLUCOSE 86 mg/dL (75-110); POTASSIUM 4.3 mmol/L (3.6-5.0); SODIUM 146.7 mmol/L (137-145); TOTAL PROTEIN 6.6 g/dL (6.3-8.2)
[2017-10-08 20:24] LABS: ACETAMINOPHEN < 10 ug/mL (10-30); SALICYLATE < 1.0 mg/dL (2.0-20.0)
[2017-10-08 20:28] LABS: ABSOLUTE LYMPHOCYTES# (MANUAL) 1.1 10^3/uL (0.5-4.7); ABSOLUTE MONOCYTES # (MANUAL) 0.3 10^3/uL (0.1-1.4); ABSOLUTE NEUTROPHILS# (MANUAL) 0.9 10^3/uL (1.7-8.2); EOSINOPHILS % (MANUAL) 0 % (0-6); LYMPHOCYTES % (MANUAL) 41 % (13-45); MONOCYTES % (MANUAL) 13 % (3-13); SEGMENTED NEUTROPHILS % (MAN) 37 % (42-78); TOTAL CELLS COUNTED 100
[2017-10-08 20:29] LABS: ANISOCYTOSIS SLIGHT; BASOPHILS % (MANUAL) 6 % (0-2); HOWELL-JOLLY BODIES PRESENT; OVALOCYTES SLIGHT; PLATELET CLUMPS PRESENT; PLATELET COMMENT ADEQUATE
[2017-10-08 20:30] LABS: PLATELET COUNT 274 10^3/uL (150-450)
[2017-10-08 22:06] LABS: APPEARANCE,URINE CLEAR; BILIRUBIN,URINE NEGATIVE (NEGATIVE); COLOR,URINE YELLOW; GLUCOSE, URINE NEGATIVE (NEGATIVE); KETONES,URINE 20 mg/dL (NEGATIVE); LEUKOCYTE ESTERASE,URINE NEGATIVE (NEGATIVE); NITRITE,URINE NEGATIVE (NEGATIVE); PROTEIN,URINE NEGATIVE (NEGATIVE); URINE SPECIFIC GRAVITY 1.014
[2017-10-08 22:48] LABS: URINE AMPHETAMINES SCREEN NEGATIVE; URINE BARBITURATES SCREEN NEGATIVE; URINE BENZODIAZEPINES SCREEN NEGATIVE; URINE COCAINE SCREEN NEGATIVE; URINE MARIJUANA (THC) SCREEN NEGATIVE; URINE METHADONE SCREEN NEGATIVE; URINE PHENCYCLIDINE SCREEN NEGATIVE
[2017-10-09] MEDS ORDERED: DIAZEPAM 2 MG TABLET PO ONE (02:06)
--- NOTE | 2017-10-09 07:46 | EKG REPORT ---
SEVERITY:- BORDERLINE ECG - SINUS ARRHYTHMIA, RATE 64-87 BORDERLINE PROLONGED QT INTERVAL : Confirmed by: Steve Najera MD 09-Oct-2017 07:46:36
--- NOTE | 2017-10-09 10:49 | RADIOLOGY REPORT (SQ) ---
EXAM DESCRIPTION: CHEST 2 VIEWS COMPLETED DATE/TIME: 10/09/2017 10:37 am REASON FOR STUDY: chest pain COMPARISON: 07/26/2017 EXAM PARAMETERS: NUMBER OF VIEWS: two views TECHNIQUE: Digital Frontal and Lateral radiographic views of the chest acquired. RADIATION DOSE: NA LIMITATIONS: none FINDINGS: LUNGS AND PLEURA: A few heavy markings are seen at the lung bases, minimal finding, concer lorrie for minimal infiltrate. Correlate clinically. No pleural effusion. MEDIASTINUM AND HILAR STRUCTURES: No masses or contour abnormalities. HEART AND VASCULAR STRUCTURES: Heart normal size. No evidence for failure. BONES: No acute findings. HARDWARE: None in the chest. OTHER: No other significant finding. IMPRESSION: Heavy basilar markings. TECHNICAL DOCUMENTATION: JOB ID: [id number] [employer]- All Rights Reserved Reading location - IP/workstation name: [email or web address]
[2017-10-09] MEDS ORDERED: LORAZEPAM 1 MG TABLET PO ONE (11:00)
--- NOTE | 2017-10-09 11:06 | ER Document Report ---
Doctor's Note Notes: 10/09/17 11:04 Patient had significantly elevated EtOH. Currently is awake and alert in no acute distress. Does have a small tremor which could be early sequela of some withdrawal. Will give another dose of Ativan. Patient was complaining of some lower chest discomfort. Chest x-ray was ordered which showed some basilar scarring versus infiltrate. Patient does not have a cough or fever. Blood count on the low end of normal but otherwise fairly unremarkable. Uncertain what the clinical significance of this x-ray interpretation is. I did review the previous chest x-rays from approximately 2 months ago. There is no significant change from prior chest x-rays. I am wondering if this needs to be investigated further as patient does report that he is homeless and does not have any resources. I am a bit concerned that he is come here now on 2 separate occasions for chest pain. I would like to get a CAT scan of the chest to make sure there are no abnormal lesions which could represent a malignancy. Patient agrees to this CT scan at this time. We will give him a milligram of Ativan as mentioned above at this time. 10/09/17 11:06 10/09/17 12:33 Chest X-Ray 10/09/17 10:06 IMPRESSION: Heavy basilar markings. Chest CT 10/09/17 11:07 IMPRESSION: NO SIGNIFICANT FINDING ON NON-CONTRASTED CHEST CT. CT scan does not show anything acute. Feel comfortable at this time discharging. Follow-up information given. Had long conversation with the patient. Gave him some local resources and have wished him the best. Discharge - Discharge Clinical Impression: Suicidal ideation Alcohol intoxication Qualifiers: Complication of substance-induced condition: uncomplicated Qualified Code(s): F10.920 - Alcohol use, unspecified with intoxication, uncomplicated Condition: Stable Disposition: HOME, SELF-CARE Additional Instructions: ACUTE ALCOHOL INTOXICATION and ALCOHOL ABUSE: Your evaluation revealed very high levels of alcohol. You can from drinking a large amount of alcohol rapidly! Further, there's the risk of falls , traffic accidents, and fights. A high portion (about 50 percent) of the serious injuries seen in hospital emergency rooms are caused by alcohol. Alcohol overdosage is usually due to an underlying emotional or psychiatric problem. You may benefit from counselling. If "binge" drinking is an ongoing problem for you, or if you drink ANY AMOUNT of alcohol EVERY day, you most likely have a tendency to alcoholism. You should avoid alcohol totally. We can refer you for treatment. Persons with alcohol problems are often also prone to other addictions -- you should discuss any use of medications or drugs with the doctor. You should be watched at home for the next several hours by someone who has not been drinking. Get extra fluids for the next 24 hours. Call the doctor if there is repeated vomiting, increasing headache, decreasing level of alertness, or any other worsening. CHRONIC ALCOHOLISM and ALCOHOL ABUSE: Your evaluation reveals evidence of chronic alcoholism, an addiction to alcohol. The tendency to alcoholism may be inherited. Chronic use of alcohol weakens muscles, causes fatty deposits in the liver , damages the stomach, makes you more prone to infections, and can cause defects in unborn children. In the long run, brain atrophy and cirrhosis of the liver result. You are also at greater risk for certain types of cancer, such as cancer of the mouth, throat, stomach, and liver. Counselling services are available to help you. In-hospital treatment programs often help. Support groups such as Alcoholics Anonymous can be very useful in beating this addiction. Your physician can make a referral for you. As alcoholics often are prone to other addictions, you should discuss your use of any other medications with the doctor. ALCOHOL WITHDRAWAL: Your symptoms are caused by alcohol withdrawal. After a period of frequent drinking, the brain and body are changed by the alcohol. When you quit or reduce your drinking, the nervous system becomes unstable. Withdrawal symptoms can start a few hours after your last drink, but sometimes don't begin until a couple of days later. Symptoms can include shakiness, sweating, insomnia, nausea , vomiting, fearfulness, hallucinations, and seizures. In addition to the acute effects of alcohol withdrawal, we often have to deal with the medical effects of alcoholism. These problems often include dehydration, stomach irritation, intestinal bleeding, low blood sugar, liver disease, and pancreas inflammation. Treatment for alcohol withdrawal includes mild sedatives, vitamins, and fluids. You need to be with someone who can help if symptoms become severe. Many patients can withdraw at home. Admission to the hospital or a detox facility may be necessary if withdrawal symptoms are severe and uncontrollable. Abstaining from alcohol is the only effective long-term treatment. If you start drinking again, you will not be able to control yourself after the first drink. Treatment programs are available. In addition, many alcoholics benefit from Alcoholics Anonymous or other support groups available through your counselor or jewish paperhanger contractor. [facility] and ALA-TE[facility] are support groups for friends and family members of an alcoholic. Go to the emergency room if you develop persistent vomiting, severe abdominal pain, fever, shortness of breath, hallucinations, uncontrollable tremors, or seizures. FOLLOW-UP CARE: Please follow up with [facility] for continued assistance in mental health, substance abuse, and social service connections. If you experience worsening or a significant change in your symptoms, notify the physician immediately or return to the Emergency Department at any time for re- evaluation. Referrals: [facility] [Outside] - Follow up in 3-5 days [facility] [Outside] - Follow up as needed Scribe Attestation: 10/09/17 02:54 I personally performed the services described in the documentation, reviewed and edited the documentation which was dictated to the scribe in my presence, and it accurately records my words and actions.
--- NOTE | 2017-10-09 11:52 | RADIOLOGY REPORT (SQ) ---
EXAM DESCRIPTION: CT CHEST WITHOUT COMPLETED DATE/TIME: 10/09/2017 11:28 am REASON FOR STUDY: chest pain, abnormal cxr COMPARISON: None. TECHNIQUE: CT scan performed of the chest without intravenous contrast. Images reviewed with lung, soft tissue and bone windows. Reconstructed coronal and sagittal MPR images reviewed. All images st ored on PACS. All CT scanners at this facility use dose modulation, iterative reconstruction, and/or weight based d osing when appropriate to reduce radiation dose to as low as reasonably achievable (ALARA). [facility]: Dose Right [facility]: CareDose [facility]: Dose Right [facility]: Teradose 4D [facility]: [employer] RADIATION DOSE: CT Rad equipment meets quality standard of care and radiation dose reduction techniq ues were employed. CTDIvol: 7.9 mGy. DLP: 351 mGy-cm. mGy. LIMITATIONS: No technical limitations. FINDINGS: LUNGS AND PLEURA: No masses, infiltrates, pneumothorax. No pleural effusions, calcificati ons. HILAR AND MEDIASTINAL STRUCTURES: No identified masses or abnormal nodes. No obvious aneurysm. HEART AND VASCULAR STRUCTURES: No aneurysm. No pericardial effusion. UPPER ABDOMEN: Limited exam. See recent abdominal CT 08/24/2017. THYROID AND OTHER SOFT TISSUES: No masses. No adenopathy. BONES: Healed right posterior rib fractures. No acute findings. HARDWARE: None in the chest. OTHER: No other significant findings. IMPRESSION: NO SIGNIFICANT FINDING ON NON-CONTRASTED CHEST CT. TECHNICAL DOCUMENTATION: JOB ID: [id number] Quality ID # [id number]: Final reports with documentation of one or more dose reduction techniques (e.g., Au tomated exposure control, adjustment of the mA and/or kV according to patient size, use of iterative reconstruction technique) 2010 [employer]- All Rights Reserved Reading location - IP/workstation name: [email or web address]
--- NOTE | 2017-10-09 12:21 | PSYCHOLOGICAL NOTE ---
Psych Note - Psych Note Psych Note: Reason for consult: anxiety, patient reported visual hallucinations Consent permissions:none given Patient is a 57-year-old male who presents to the emergency department today with complaints of suicidal ideation. Patient states that he "is giving up, and tired of life". Patient mentions he has fractured ribs and has been unable to eat or sleep for the last week but does not elaborate on why other than he has "stomach issues". Patient states he has been "homeless several times in the past and laid off several times". Patient states he has an apartment now but he states he is going to "lose it by the end of the month". Patient has been here in the past for suicidal ideation. Patient states he does smoke and drink with his last alcohol consumption being this morning at 0300. Patient disclosed he is feeling "terrible" identifying his ribs, feeling faint, being unable to eat. He disclosed that when he is working he is fine however he lost his job 2 months ago and is looking at possibly being homeless because he is unable to pay his rent. He states he has been homeless 10 times in the past and he just "cannot do it again." He describes rebuilding his life multiple times. Patient was unable to engage in problem solving and was refused all possible alternate ideas presented. 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 Patient disclosed he has a $2000.00 bedroom set that he is trying to sell but has not been able to yet. Patient stated he does not feel like he has any issues with alcohol; "my friends drink more than me." Patient disclosed "I think I'm is hallucinating...I see stuff that is not there when I close my eyes...it is like watching TV." Chart review conducted: Patient was evaluated 06/26/2017 He reports that he has been inpatient psychiatric treatment once voluntarily in [place] but that was "to escape the winter weather." He disclosed that he has been homeless a total of 10 times. 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 Patient states that he has no relationship with his family because "they are intolerable." Patient reports only one friend in [place]. Patient is alert and orientated to person, place, time and circumstance. Mood is euthymic with congruent affect. Patient endorces passive suicidal ideation ie no plan means or intent. Patient denies homicidal ideation. Patient reports hallucinations; patient is not demonstrating and behavior congruent to responding to internal stimuli and patient's report of hallunications is not congruent with known manifictations of hallucinations (i.e he states he knows he is seeing things and sees them only with eyes closed). Presentation is congruent with intact reality based presentation i.e. organized and linear thought process. Conversational speech was within normal rate, tone and prosody. Eye contact was well-maintained. Intellectual abilities appear to be within the average range. Attention and concentration are good. Insight, judgment, impulse control are poor do to alcohol abuse. 291.9 (F10.99) Unspecified Alcohol disorder Cluster B character traits are observed Impression\\plan: Patient is cleared from from acute psychiatric services. Patient does not meet IVC criteria per [place] GS 122C. Patient denies suicidal and homicidal ideation. Patient's behavior is congruent with intact reality based presentation and does not support patient's report of hallucinations i.e. organized and linear thought processes, conversational speech within normal rate tone and prosody, and eye contact was well-maintained. 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 Patient is unwilling to work in a job that he is overqualified for because he "emotionally cannot handle it." While patient denies substance abuse history, patient is intoxicated at this time and discloses difficulty holding onto a job (moving 50-60 times, being homeless 10 times). Patient is recommended to follow-up with outpatient mental health services and receive a substance abuse assessment. Dr. Álvarez was consulted on the care management of this patient; attending physician is agreement with recommendations and disposition.
[2017-10-09 12:24] VITALS: BP 161/99
== END 2017-10-09 13:18 | disposition home or self-care (01) ==
LOC: ER 19:04
DX: R45.851 Suicidal ideations (principal); F10.920 Alcohol use, unspecified with intoxication, uncomplicated; F17.210 Nicotine dependence, cigarettes, uncomplicated; I10 Essential (primary) hypertension
CPT/HCPCS: 93005; 99285; 96360; 36415; 80307 ×4; 85025; 80053; 81001; 71046; 71250; 93010; J3490; J7030